=== PATIENT | female | born 1950 | race Caucasian/White ===

== ENCOUNTER 2019-07-18 13:56 | Emergency (ER) | payer MEDICARE ==
[2019-07-18 14:08] VITALS: BP 137/83
--- NOTE | 2019-07-18 14:30 | UC ---
Skin Complaint HPI - HPI Summary HPI Summary: Patient presents to urgent care for evaluation of cat scratch and erythema that she sustained yesterday. Patient states she had a feral cat and was scratched on both the dorsal and volar aspect of her right hand. Patient is left-hand dominant. Patient states today she developed some increased pain and swelling on the dorsal aspect, base of thumb. Patient states she feels some discomfort into her left thumb. Patient without fevers or chills. Patient is not immunocompromised. Patient is unaware tetanus is but we'll ask her doctor tomorrow morning. Patient is very confident this was not a bite injury. Since been taking Motrin for pain with mild relief. No fevers or chills. Medications reviewed this visit - History of Current Complaint Chief Complaint: UCSkin Time Seen by Provider: 07/18/19 14:29 Stated Complaint: CAT SCRATCH Hx Obtained From: Patient Pain Intensity: 6 - Allergy/Home Medications Allergies/Adverse Reactions: Allergies Allergy/AdvReac Type Severity Reaction Status Date / Time decongestants Allergy Tachycardia Uncoded 07/18/19 14:09 Home Medications: Home Medications Ibuprofen TAB* [Advil TAB*] 400 mg PO ONCE PRN 07/18/19 [History Confirmed 07/18] Supplements* 07/18/19 [History] PMH/Surg Hx/FS Hx/Imm Hx Previously Healthy: Yes - Surgical History Surgical History: Yes Surgery Procedure, Year, and Place: shattered leg repair, shoulder, knee, cone biopsy, laparoscopy - Family History Known Family History: Positive: Non-Contributory - Social History Occupation: Employed Full-time Alcohol Use: Occasionally Substance Use Type: None Smoking Status (MU): Never Smoked Tobacco - Immunization History Most Recent Tetanus Shot: unsure Review of Systems All Other Systems Reviewed And Are Negative: Yes Constitutional: Negative: Fever Skin: Positive: Other - Redness and abrasions to her right arm Physical Exam - Summary Physical Exam Summary: Vital Signs Reviewed: Yes A+Ox3, no distress, mild discomfort with movement of hand Eyes: Conjunctiva Clear ENT: Hearing grossly normal neck: supple Respiratory: Positive: No respiratory distress, No accessory muscle use Cardiovascular: skin color reflect adequate perfusion, 2+ radial, 2+ ulnar CBT < 2 sec Musculoskeletal Exam: ALAS x 4 without difficulty + flex/ext elbow + pronate/ supinated + flex/ext wrist + thumb up + flex/ext MCP, DIP, PIP Neurological: Positive: Alert, ambulatory without difficulty, + full AROM left thumb against resistance Psychological: Positive: Normal Response To examiner Skin: Positive: no rash, no ecchymosis, + erythema right distal forearm, dorsum , 3x2cm with central scratch. mild warmth. no induration + scratch x 4 dorsum and volar aspect. no drainage mild local edema Triage Information Reviewed: Yes Vital Signs: Initial Vital Signs Temp 96.6 F 07/18/19 14:01 Pulse 81 07/18/19 14:01 Resp 16 07/18/19 14:01 BP 137/83 07/18/19 14:01 Pulse Ox 100 07/18/19 14:01 Course/Dx - Course Course Of Treatment: Patient presents urgent care for evaluation of wound to the right hand. Patient 's T and Olga. Patient was scratched by a feral K yesterday. Patient's abdomen is without platelets. Was turned over to the SVC. Patient with an area of cellulitis on her dorsum of the distal forearm around the scratch. Patient with full active range of motion of her thumb and index. Patient states she feels some discomfort in the area of the injury. Patient's was localized edema. We will place patient in a thumb spica immobilizer. Motrin for pain. Elevate. Heat toher Bactrim to cover for skin as well as Sscratch pathology. Did demarcate the wound. Discussed with patient needs to be evaluated in 24-36 hours. Strict return precautions discussed. Patient states understanding and agreement. Patient will also call her PCP in the morning to check on her tetanus status. Patient comfortable with plan. Bite wounds were not completed as patient had a bite. - Diagnoses Provider Diagnosis: Wound infection Discharge ED - Sign-Out/Discharge Documenting (check all that apply): Patient Departure All imaging exams completed and their final reports reviewed: No Studies - Discharge Plan Condition: Stable Disposition: HOME Prescriptions: Sulfamethox/Trimethoprim DS* [Bactrim DS 800/160 TAB*] 1 tab PO BID #14 tab Patient Education Materials: Wound Infection (ED) Referrals: Joaquin Cordoba, [facility] [employer] [Primary Care Provider] - Additional Instructions: - Wear thumb splint as much as possible for the next several days. Okay to take off to wash - Soak wounds with warm water 1--15 minutes, 2-3 times a day. Alternatively, soak your wounds in warm Epsom salts soaks - [place] wounds dried and covered with a thin layer of antibiotic ointment such as Neosporin or Polysporin - Take antibiotics twice a day exactly as prescribed - Contact your primary care provider tomorrow morning to schedule a follow-up appointment in 24-36 hours. Also check with your primary care that her tetanus vaccine is up-to-date. -Okay to alternate ibuprofen (Advil, Motrin) and Tylenol (acetaminophen) every 3 hours for pain or fever. Take with food. Do NOT take for more than 4-5 days. - If you develop increased redness, increased pain, red streaking, fever, chills , inability or difficulty moving her fingers, swelling or pain in her fingers recommending levers appointment for further evaluation and treatment. Monitor your wound closely for worsening infection. - Billing Disposition and Condition Condition: STABLE Disposition: Home
[2019-07-18] MEDS ORDERED: Sulfamethox/Trimethoprim DS 800/160* TAB PO ONE (14:49)
== END 2019-07-18 15:00 | disposition home or self-care (01) ==
LOC: UCEAST 13:56
DX: S60.511A Abrasion of right hand, initial encounter (principal); Z88.8 Allergy status to other drugs, medicaments and biological substances; W55.03XA Scratched by cat, initial encounter; Y92.9 Unspecified place or not applicable
CPT/HCPCS: 99213; A9270-GY; G0463